=== PATIENT | female | born 1990 | race Caucasian/White ===

== ENCOUNTER 2019-07-11 20:18 | Observation (INO) ==
[2019-07-11 21:16] LABS: Basophils # 0.1 K/mcL (0.0-0.2); Basophils % 0.6 %; Eosinophils # 0.2 K/mcL (0.0-0.6); Eosinophils % 1.8 %; Hematocrit 42.5 % (35.3-44.9); Hemoglobin 13.7 g/dL (11.5-15.4); Immature Granulocytes % 0.3 % (0-4); Lymphocytes # 2.6 K/mcL (0.6-4.6); Lymphocytes % 27.4 %; Mean Corpuscular HGB Conc 32.2 g/dL (31.6-35.5); Mean Corpuscular Hemoglobin 30.1 pg (28.0-33.3); Mean Corpuscular Volume 93.4 fL (83.0-100.0); Mean Platelet Volume 10.8 fL (9.4-12.4); Monocytes # 0.7 K/mcL (0.0-1.3); Monocytes % 7.2 %; Platelet Count 252 K/mcL (140-400); Red Blood Count 4.55 M/mcL (3.82-4.97); Red Cell Distribution Width 14.2 % (11.5-14.5); Segmented Neutrophils % 62.7 %; White Blood Count 9.5 K/mcL (4.3-11.1)
[2019-07-11] MEDS ORDERED: Clindamycin 900 MG/50 ML 900 MG/50 ML IV.SOLN IVPB ONE (21:31)
[2019-07-11] MEDS ORDERED: 0.9 % Sodium Chloride 1,000 ML IV ONE (21:38)
[2019-07-11 21:39] LABS: BUN/Creatinine Ratio 15 (6-26); Blood Urea Nitrogen 10 mg/dL (6-20); Calcium 9.4 mg/dL (8.6-10.3); Carbon Dioxide 19 mEq/L (23-29); Chloride 108 mEq/L (98-107); Glucose 127 mg/dL (70-105); Osmolality,Calculated 281 (280-300); Potassium 3.6 mEq/L (3.5-5.1); Sodium 135 mEq/L (136-145); eGFR For African Americans > 60 (> 60); eGFR For Non-African Americans > 60 (> 60)
[2019-07-11] MEDS ORDERED: *HR* HYDROcodone/Acet 5/325 mg TABLET PO ONE (21:52)
[2019-07-11 23:59] VITALS: BP 163/107
[2019-07-12] MEDS ORDERED: Naloxone 0.4 MG/ML INJ IVP PRN (02:57)
[2019-07-12] MEDS ORDERED: Dextrose Gel 15 GM/37.5 ML TUBE PO PRN ×2 (02:58)
[2019-07-12] MEDS ORDERED: *HR* Dextrose 50 % in Water (Syg) 50 ML SYRINGE IVP PRN (02:58)
[2019-07-12] MEDS ORDERED: D5% in Water 1,000 ML IVC PRN (02:58)
[2019-07-12] MEDS ORDERED: Insulin LISPRO 300 UNITS/3 ML VIAL SQ SCH (06:00)
== END 2019-07-12 03:12 | disposition left against medical advice (07) ==
LOC: EMEROOARM 20:18 → 3BNU 20:18
PROVIDERS: ADMIT Family Medicine; ATTEND Family Medicine

== ENCOUNTER 2020-11-18 18:03 | Inpatient (IN) ==
[2020-11-18] MEDS ORDERED: 0.9 % Sodium Chloride 1,000 ML IVC ONE (18:13)
[2020-11-18 18:34] LABS: Basophils # 0.1 K/mcL (0.0-0.2); Basophils % 0.5 %; Eosinophils # 0.2 K/mcL (0.0-0.6); Eosinophils % 2.1 %; Hematocrit 40.6 % (35.3-44.9); Hemoglobin 13.3 g/dL (11.5-15.4); Immature Granulocytes % 0.3 % (0-4); Lymphocytes # 3.2 K/mcL (0.6-4.6); Lymphocytes % 30.1 %; Mean Corpuscular HGB Conc 32.8 g/dL (31.6-35.5); Mean Corpuscular Volume 91.4 fL (83.0-100.0); Mean Platelet Volume 10.9 fL (9.4-12.4); Monocytes # 0.7 K/mcL (0.0-1.3); Monocytes % 6.9 %; Neutrophils # 6.4 K/mcL (1.6-8.9); Platelet Count 258 K/mcL (140-400); Red Blood Count 4.44 M/mcL (3.82-4.97); Red Cell Distribution Width 14.8 % (11.5-14.5); Segmented Neutrophils % 60.1 %; White Blood Count 10.6 K/mcL (4.3-11.1)
[2020-11-18 18:54] LABS: Acetaminophen < 10 mcg/mL (10-20); Alanine Aminotransferase 49 Units/L (7-52); Albumin 4.2 g/dL (3.5-5.7); Albumin/Globulin Ratio 1.2 (1.1-2.2); Alkaline Phosphatase 116 Units/L (34-104); Aspartate Amino Transferase 38 Units/L (13-39); BUN/Creatinine Ratio 9 (6-26); Bilirubin,Direct 0.1 mg/dL (0.0-0.2); Bilirubin,Indirect 0.2 mg/dL (0.0-1.0); Bilirubin,Total 0.3 mg/dL (0.3-1.0); Blood Urea Nitrogen 8 mg/dL (6-20); Calcium 9.3 mg/dL (8.6-10.3); Carbon Dioxide 21 mEq/L (23-29); Chloride 106 mEq/L (98-107); Ethanol < 10 mg/dL (Less than 10); Globulin 3.5 g/dL (2.4-3.5); Glucose 112 mg/dL (70-105); Osmolality,Calculated 283 (280-300); Salicylate < 2.5 mg/dL (15.0-30.0); Sodium 137 mEq/L (136-145); Total Protein 7.7 g/dL (6.4-8.9); eGFR For African Americans > 60 (> 60); eGFR For Non-African Americans > 60 (> 60)
[2020-11-18] MEDS ORDERED: *HR* LORazepam 2 MG/ML VIAL ONE ×2 (19:18→19:57)
[2020-11-18 19:37] LABS: Amphetamine Screen,Urine Negative ng/mL (Cutoff=1000); Barbiturate Screen,Urine Negative ng/mL (Cutoff=200); Benzodiazepines Screen,Urine Negative ng/mL (Cutoff=200); Cannabinoid Screen,Urine Positive ng/mL (Cutoff = 50); Cocaine Screen,Urine Negative ng/mL (Cutoff= 300); Opiate Screen,Urine Negative ng/mL (Cutoff=300); Phencyclidine Screen,Urine Negative ng/mL (Cutoff=25)
[2020-11-18 19:50] LABS: Bilirubin,Urine Small (Negative); Blood,Urine Trace-intact (Negative); Color,Urine Yellow (Yellow); Glucose,Urine (UA) Normal (Normal); Ketones,Urine Negative (Negative); Leukocyte Esterase,Urine Small (Negative); Nitrite,Urine Negative (Negative); PH,Urine 5.5 pH Units (5.0-8.0); Protein,Urine Trace mg/dL (Neg-Trace); Specific Gravity,Urine >= 1.030 (1.010-1.025); Urobilinogen,Urine Normal (Normal)
[2020-11-18 19:52] LABS: Clarity,Urine Slightly cloudy (Clear)
[2020-11-18] MEDS ORDERED: *HR* LORazepam 2 MG/ML VIAL IVP ONE (19:56)
[2020-11-18 19:57] LABS: Squamous Epithelial Cell,Urine Moderate per hpf (None-Few)
[2020-11-18 19:58] LABS: Mucus,Urine Few per lpf (None-Few); RBC,Urine 0-3 per hpf (0-3)
[2020-11-18 19:59] LABS: Amorphous Sediment,Urine Few per hpf (None-Few)
[2020-11-18] MEDS ORDERED: Potassium Effervescent 25 MEQ TABLET.EFF PO ONE (20:18)
[2020-11-18] MEDS ORDERED: Ondansetron ODT 4 MG TAB.RAPDIS SL PRN (21:07)
[2020-11-18] MEDS ORDERED: Acetaminophen 325 MG TABLET PO PRN (21:07)
[2020-11-18] MEDS ORDERED: Naloxone 0.4 MG/ML INJ IVP PRN (21:07)
[2020-11-19] MEDS: 0.9 % Sodium Chloride 1,000 ML IVC SCH (00:31)
[2020-11-19 01:24] LABS: Basophils % 0.4 %; Eosinophils # 0.2 K/mcL (0.0-0.6); Eosinophils % 1.8 %; Hematocrit 37.2 % (35.3-44.9); Hemoglobin 12.2 g/dL (11.5-15.4); Immature Granulocytes % 0.3 % (0-4); Lymphocytes # 3.1 K/mcL (0.6-4.6); Lymphocytes % 32.3 %; Mean Corpuscular HGB Conc 32.8 g/dL (31.6-35.5); Mean Corpuscular Hemoglobin 30.3 pg (28.0-33.3); Mean Corpuscular Volume 92.3 fL (83.0-100.0); Mean Platelet Volume 11.1 fL (9.4-12.4); Monocytes # 0.6 K/mcL (0.0-1.3); Monocytes % 6.2 %; Neutrophils # 5.6 K/mcL (1.6-8.9); Platelet Count 228 K/mcL (140-400); Red Blood Count 4.03 M/mcL (3.82-4.97); Red Cell Distribution Width 14.7 % (11.5-14.5); White Blood Count 9.5 K/mcL (4.3-11.1)
[2020-11-19 01:39] LABS: INR 1.3; Prothrombin Time 14.4 Seconds (9.4-12.1)
[2020-11-19 01:48] LABS: Alanine Aminotransferase 42 Units/L (7-52); Albumin 3.6 g/dL (3.5-5.7); Albumin/Globulin Ratio 1.1 (1.1-2.2); Alkaline Phosphatase 90 Units/L (34-104); Aspartate Amino Transferase 33 Units/L (13-39); BUN/Creatinine Ratio 8 (6-26); Bilirubin,Total 0.4 mg/dL (0.3-1.0); Blood Urea Nitrogen 6 mg/dL (6-20); Calcium 8.7 mg/dL (8.6-10.3); Carbon Dioxide 21 mEq/L (23-29); Chloride 109 mEq/L (98-107); Globulin 3.4 g/dL (2.4-3.5); Glucose 108 mg/dL (70-105); Magnesium 2.3 mg/dL (1.6-2.6); Osmolality,Calculated 286 (280-300); Potassium 3.2 mEq/L (3.5-5.1); Sodium 139 mEq/L (136-145); eGFR For African Americans > 60 (> 60); eGFR For Non-African Americans > 60 (> 60)
[2020-11-19 01:57] LABS: Thyroid Stimulating Hormone 1.273 mcIU/mL (0.340-5.600)
[2020-11-19] MEDS ORDERED: *HR* LORazepam 2 MG/ML VIAL IVP ONE (06:48)
[2020-11-19] MEDS ORDERED: *HR* LORazepam 2 MG/ML VIAL ONE (06:52)
[2020-11-19] MEDS ORDERED: D5% in Water 1,000 ML IVC PRN (11:19)
[2020-11-19] MEDS ORDERED: *HR* Dextrose 50 % in Water (Vial) 50 ML VIAL IVP PRN (11:19)
[2020-11-19] MEDS ORDERED: Dextrose Gel 15 GM/37.5 ML TUBE PO PRN ×2 (11:19)
[2020-11-19] MEDS ORDERED: Albuterol 2.5 MG/3 ML NEBULIZER IH PRN (13:54)
[2020-11-19] MEDS ORDERED: 0.9 % Sodium Chloride 1,000 ML IVC SCH (14:00)
[2020-11-19] MEDS: Insulin LISPRO 300 UNITS/3 ML VIAL SUBQ SCH ×2 (14:46→17:57)
[2020-11-19] MEDS ORDERED: *HR* LORazepam 0.5 MG TABLET PO ONE (18:21)
[2020-11-20] MEDS: 0.9 % Sodium Chloride 1,000 ML IVC SCH (00:52)
[2020-11-20] MEDS ORDERED: Haloperidol Lactate 5 MG/ML VIAL IM ONE (01:13)
[2020-11-20] MEDS ORDERED: *HR* LORazepam 2 MG/ML VIAL IM STA (01:23)
[2020-11-20] MEDS ORDERED: Ziprasidone 20 MG, Closed System Device IM Kit 1 EACH in Water for inj. (sterile) 1 ML IM ONE (03:06)
[2020-11-20] MEDS: Insulin LISPRO 300 UNITS/3 ML VIAL SUBQ SCH ×3 (08:32→17:47)
[2020-11-20] MEDS: Aspirin Enteric Coated 81 MG Tablet PO SCH (08:33)
[2020-11-20] MEDS: Loratadine 10 MG TABLET PO SCH (08:33)
[2020-11-20 10:35] LABS: Hematocrit 37.3 % (35.3-44.9); Hemoglobin 12.4 g/dL (11.5-15.4); Mean Corpuscular HGB Conc 33.2 g/dL (31.6-35.5); Mean Corpuscular Volume 93.3 fL (83.0-100.0); Mean Platelet Volume 10.7 fL (9.4-12.4); Platelet Count 208 K/mcL (140-400); Red Cell Distribution Width 14.9 % (11.5-14.5); White Blood Count 7.3 K/mcL (4.3-11.1)
[2020-11-20 10:55] LABS: BUN/Creatinine Ratio 6 (6-26); Blood Urea Nitrogen 4 mg/dL (6-20); Calcium 8.9 mg/dL (8.6-10.3); Carbon Dioxide 22 mEq/L (23-29); Chloride 111 mEq/L (98-107); Glucose 130 mg/dL (70-105); Osmolality,Calculated 289 (280-300); Potassium 3.5 mEq/L (3.5-5.1); Sodium 140 mEq/L (136-145); eGFR For African Americans > 60 (> 60); eGFR For Non-African Americans > 60 (> 60)
[2020-11-20] MEDS: *HR* LORazepam 0.5 MG TABLET PO PRN ×2 (14:16→20:31)
[2020-11-21] MEDS ORDERED: *HR* LORazepam 2 MG/ML VIAL IVP ONE (03:27)
[2020-11-21] MEDS: Insulin LISPRO 300 UNITS/3 ML VIAL SUBQ SCH ×3 (07:27→16:09)
[2020-11-21] MEDS: Aspirin Enteric Coated 81 MG Tablet PO SCH (08:26)
[2020-11-21] MEDS: Loratadine 10 MG TABLET PO SCH (08:26)
[2020-11-21] MEDS: *HR* LORazepam 0.5 MG TABLET PO PRN ×3 (08:27→20:33)
[2020-11-21 17:35] VITALS: BP 135/94; PULSE 96; TEMP 98.7; O2SAT 97
== END 2020-11-21 21:50 | DRG 817 ==
LOC: EMEROOARM 18:03 → 3BNU 18:03 → SUATTDRO 22:17 → 3BNU 22:51
PROVIDERS: ADMIT Student in an Organized Health Care Education/Training Program; ATTEND Nurse Practitioner